=== PATIENT | female | born 1950 | race Caucasian/White ===

== ENCOUNTER 2019-06-26 11:02 | Observation (INO) | payer MEDICARE ==
[~2019-06-26] VITALS: Ht 157.5 cm; Wt 53.9 kg
[2019-06-26 11:51] VITALS: BP 143/72
[2019-06-26 11:57] LABS: BASOPHILS % (AUTO) 0.4 % (0.0-5.0); EOSINOPHILS % (AUTO) 0.2 % (0.0-8.0); HEMATOCRIT 39.2 % (36-48); LYMPHOCYTES % (AUTO) 17.1 % (21.0-51.0); MEAN CORPUSCULAR HEMOGLOBIN 29.9 pg (27.0-33.0); MEAN CORPUSCULAR HGB CONC 33.6 g/dL (32.0-36.0); MEAN CORPUSCULAR VOLUME 88.8 fL (79-99); NEUTROPHILS % (AUTO) 74.3 % (40.0-77.0); PLATELET COUNT (AUTO) 254 K/uL (130-400); RED BLOOD CELL COUNT(AUTO) 4.41 MIL/uL (4.00-5.50); RED CELL DISTRIBUTION WIDTH 14.6 % (11.0-15.5)
[2019-06-26 12:07] LABS: CREATININE 0.6 mg/dL (0.5-1.5); POTASSIUM 4.9 mmol/L (3.5-5.1)
[2019-06-26] MEDS ORDERED: CHOL100044 PO (12:20)
[2019-06-26] MEDS ORDERED: METO-408 PO (12:20)
[2019-06-26] MEDS ORDERED: [UNRECOGNIZED DRUG - OTHER] PO (13:25)
[2019-06-26] MEDS ORDERED: MAGN400T40 PO (13:25)
[2019-06-27] VITALS (18 sets, daily range): BP systolic 104–139; BP diastolic 59–80
[2019-06-27] MEDS ORDERED: BACITRACIN 50,000 UNIT VIAL ONE (06:48)
[2019-06-27] MEDS ORDERED: THROMBIN-JMI 20000 UNIT KIT TP ONE (06:48)
[2019-06-27] MEDS ORDERED: DURAMORPH PF1 MG/ML 10ML AMP IV ONE (06:48)
[2019-06-27] MEDS ORDERED: LIDOCAINE PF 2% 5ML ABBOJECT ONE (07:03)
[2019-06-27] MEDS ORDERED: PROPOFOL 10 MG/ML 20ML VIAL IV ONE (07:03)
[2019-06-27] MEDS ORDERED: GLYCOPYRROLATE 1 MG/5 ML SYRINGE ONE (07:03)
[2019-06-27] MEDS ORDERED: SUCCINYLCHOLINE 200MG/10ML SYR ONE (07:03)
[2019-06-27] MEDS ORDERED: MIDAZOLAM HCL 1 MG/ML 2ML VIAL ONE ×2 (07:03→08:00)
[2019-06-27] MEDS ORDERED: DEXAMETHASONE SOD PHOSPHATE 10MG/ML 1ML VIAL ONE (07:03)
[2019-06-27] MEDS ORDERED: NEOSTIGMINE 5MG/5ML SYR IV ONE (07:04)
[2019-06-27] MEDS ORDERED: FENTANYL CITRATE PF 50 MCG/1 ML 2ML VIAL ONE ×3 (07:04→11:22)
[2019-06-27] MEDS ORDERED: ONDANSETRON HCL 4 MG/2 ML VIAL ONE (07:04)
[2019-06-27] MEDS ORDERED: ROCURONIUM 10MG/1ML SYR 10 MG/ML ML ONE (07:04)
[2019-06-27] MEDS ORDERED: LACTATED RINGERS 1000ML 1,000 ML IV ONE (07:29)
[2019-06-27] MEDS: CLINDAMYCIN 900 MG/D5% WATER 50 ML IV PRN ×2 (07:45→08:25)
[2019-06-27] MEDS ORDERED: EPHEDRINE SULFATE 50 MG/ML AMPULE ONE (08:55)
[2019-06-27] MEDS: LACTATED RINGERS 1000ML 1,000 ML IV SCH (10:53)
[2019-06-27] MEDS ORDERED: SODIUM CHLORIDE 0.9% 10 ML VIAL IVP PRN (11:00)
[2019-06-27] MEDS ORDERED: PROMETHAZINE HCL 25 MG/ML 1ML AMPULE IM PRN (11:00)
[2019-06-27] MEDS ORDERED: HYDROCODONE/ACETAMINOPHEN 5/325 MG TAB PO PRN (11:00)
[2019-06-27] MEDS: DEXAMETHASONE SOD PHOSPHATE 4 MG/ML 1ML VIAL IVP SCH ×3 (11:00→23:02)
[2019-06-27] MEDS ORDERED: MEPERIDINE-PF 25 MG/ML SYG ONE (11:37)
[2019-06-27] MEDS ORDERED: CLINDAMYCIN 900 MG/D5% WATER 50 ML IV SCH (12:00)
[2019-06-27] MEDS ORDERED: CLINDAMYCIN IV ONE (15:55)
[2019-06-27] MEDS ORDERED: D5W IV ONE (15:55)
[2019-06-27] MEDS ORDERED: CLINDAMYCIN 900 MG/D5% WATER 50 ML IV ONE (15:56)
--- NOTE | 2019-06-27 17:30 | NUR ---
PT AMBULATED WELL NO SIGNS OF DISCOMFORT NOTED DENIES SOB OR CHEST PAIN
[2019-06-27] MEDS: MORPHINE SULFATE 2 MG/ML 1ML SYG IVP PRN ×2 (20:33→23:04)
[2019-06-27] MEDS ORDERED: GABAPENTIN 300 MG CAPSULE PO SCH (21:00)
[2019-06-27] MEDS ORDERED: DiphenhydrAMINE HCL 50 MG/ML VIAL ONE (22:56)
[2019-06-27] MEDS ORDERED: DiphenhydrAMINE HCL 50 MG/ML VIAL IV PRN (23:15)
[2019-06-28] MEDS: LACTATED RINGERS 1000ML 1,000 ML IV SCH (00:13)
[2019-06-28 03:15] VITALS: BP 108/66
[2019-06-28] MEDS: DEXAMETHASONE SOD PHOSPHATE 4 MG/ML 1ML VIAL IVP SCH (04:56)
[2019-06-28 07:25] VITALS: BP 107/69
--- NOTE | 2019-06-28 08:45 | NUR ---
VOID PATIENT REPORTS ABILITY TO URINATE IN TOILET WITH NO ISSUES AFTER PARKS CATHETER REMOVAL.
[2019-06-28] MEDS ORDERED: Cholecalciferol (Vitamin D3) (Vitamin D) 1,000 UNIT PO SCH (09:00)
[2019-06-28] MEDS ORDERED: VITAMIN B COMPLEX 1 CAPSULE PO SCH (09:00)
--- NOTE | 2019-06-28 09:00 | NUR ---
DISCHARGE DISCHARGE TEACHING PROVIDED TO PATIENT REGARDING RX (TORADOL), F/U APPT WITH DR. POPE, KEEP INCISION DRESSING DRY AND INTACT, DR. POPE DISCHARGE INSTRUCTIONS REVIEWED WITH PATIENT. PROVIDED WITH STAPLE REMOVAL KIT AND INSTRUCTED TO TAKE STAPLE REMOVER TO F/U WITH DR. POPE. PATIENT VERBALIZED UNDERSTANDING OF DISCHARGE TEACHING. REMOVED 20G IV FROM LEFT FA, CATHETER TIP INTACT. PERFORMED LOWER PACK INCISION DRESSING CHANGE. LOWER BACK SURGICAL INCISION NOTED TO BE APPROXIMATED AND ASYMPTOMATIC, 16 LUCIA INTACT. CLEANSED LOWER BACK SURGICAL INCISION WITH BETADINE, COVERED WITH 4X4 GAUZE AND SECURED WITH MEDIPORE TAPE. PATIENT AWAITING HER FRIEND TO PICK HER UP.
[2019-06-28] MEDS ORDERED: Metoprolol Succinate 25 MG PO SCH (21:00)
[2019-06-28] MEDS ORDERED: MAGNESIUM OXIDE 400 MG TABLET PO SCH (21:00)
== END 2019-06-28 09:28 | disposition home or self-care (01) ==
LOC: EDSTATUS 13:00 → EDBD 13:00 → EDSTATUS 13:00 → DAHIP 06-27 05:49 → 4AH 06-27 11:17
PROVIDERS: ADMIT Neurological Surgery; ATTEND Neurological Surgery
DX: M51.16 Intervertebral disc disorders with radiculopathy, lumbar region (principal); Z88.0 Allergy status to penicillin
CPT/HCPCS: 36415; 63047; 72100; 80048; 85025; 88304; 88311; 96365; 96375; 96376 ×2; 99284; A4215; A4221; A4222; A4223; A4344; A4510; A4600; A4649 ×3; A4663; A6219; A6260; G0378 ×23; J0330; J1100 ×4; J1200; J2001; J2175; J2250 ×2; J2274; J2405; J2704; J2710; J3010 ×3; J3490 ×4; J7120 ×2; 96374

== ENCOUNTER 2022-02-05 13:41 | Emergency (ER) | payer MEDICARE ==
[~2022-02-05] VITALS: Ht 157.5 cm; Wt 53.1 kg
[~2022-02-05 13:41] MED LIST: CHOL100044 PO; MAGN400T40 PO; METO-408 PO; [UNRECOGNIZED DRUG - OTHER] PO
[2022-02-05] MEDS ORDERED: LACTATED RINGERS 1000ML 1,000 ML IV ONE ×2 (14:30→15:38)
[2022-02-05 15:44] LABS: BASOPHILS % (AUTO) 0.3 % (0.0-5.0); EOSINOPHILS % (AUTO) 0.3 % (0.0-8.0); HEMATOCRIT 38.9 % (36-48); LYMPHOCYTES % (AUTO) 17.7 % (21.0-51.0); MEAN CORPUSCULAR HEMOGLOBIN 30.4 pg (27.0-33.0); MEAN CORPUSCULAR HGB CONC 33.4 g/dL (32.0-36.0); MEAN CORPUSCULAR VOLUME 90.9 fL (79-99); MONOCYTES % (AUTO) 8.4 % (3.0-13.0); PLATELET COUNT (AUTO) 237 K/uL (130-400); RED BLOOD CELL COUNT(AUTO) 4.28 MIL/uL (4.00-5.50); RED CELL DISTRIBUTION WIDTH 13.1 % (11.0-15.5); WHITE BLOOD COUNT (AUTO) 6.7 K/uL (4.8-10.8)
[2022-02-05 15:53] LABS: CREATININE 0.6 mg/dL (0.5-1.5); POTASSIUM 3.9 mmol/L (3.5-5.1)
[2022-02-05 15:57] LABS: ALBUMIN 4.3 g/dL (3.5-5.0); BILIRUBIN,TOTAL 0.3 mg/dL (0.2-1.0); TOTAL PROTEIN, SERUM 7.3 g/dL (6.0-8.3)
[2022-02-05] MEDS ORDERED: NAPR-1196 PO (17:54)
[2022-02-05 18:06] VITALS: BP 158/78
== END 2022-02-05 18:08 | disposition home or self-care (01) ==
LOC: EDH 13:41
DX: K41.90 Unilateral femoral hernia, without obstruction or gangrene, not specified as recurrent (principal); R59.0 Localized enlarged lymph nodes; E86.0 Dehydration; Z88.0 Allergy status to penicillin; Z96.641 Presence of right artificial hip joint
CPT/HCPCS: 36415; 72170; 76856; 76882; 80053; 83690; 84484; 85025; 93005; 96360; 99285; J7120